=== PATIENT | female | born 1965 | race Hispanic/Latino ===

== ENCOUNTER 2022-06-25 20:14 | Emergency (ER) | payer OTHER, BC ==
[2022-06-25] MEDS ORDERED: Lidocaine 1% w/Epinephrine 1:100K 20 ML VIAL ONE (21:52)
[2022-06-25] MEDS ORDERED: Fentanyl 100 MCG/2 ML VIAL ONE (21:52)
[2022-06-25] MEDS ORDERED: Boostrix 0.5 ML (Tdap) VIAL (>/=7 yrs of age) ONE (21:52)
[2022-06-25] MEDS ORDERED: Amoxicillin/Potassium Clav 875 MG TAB ONE (21:52)
== END 2022-06-25 22:37 | disposition home or self-care (01) ==
LOC: ERS 20:14
DX: S51.852A Open bite of left forearm, initial encounter (principal); I10 Essential (primary) hypertension; Z23 Encounter for immunization; W54.0XXA Bitten by dog, initial encounter
CPT/HCPCS: 12002; 90471; 90715; 96374; J3010